=== PATIENT | female | born 1960 | race Native Hawaiian/Other Pacific Islander ===

== ENCOUNTER 2018-07-22 11:03 | Outpatient (CLI) | payer BC | END 2018-07-22 23:52 | disposition home or self-care (01) | LOC: RESP 11:03 | DX: I10 Essential (primary) hypertension (principal) | CPT/HCPCS: 93005 ==

== ENCOUNTER 2018-10-28 08:30 | Outpatient (CLI) | payer BC | END 2018-10-28 21:20 | disposition home or self-care (01) | LOC: MAMMO 08:30 | DX: Z12.31 Encounter for screening mammogram for malignant neoplasm of breast (principal) ==